=== PATIENT | female | born 1990 | race American Indian/Alaskan Native ===

== ENCOUNTER 2019-04-06 11:18 | Emergency (ER) | payer MEDICAID ==
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
[2019-04-06 12:08] LABS: Basophils # (Auto) 0.1 K/mm3 (0.0-0.1); Basophils % (Auto) 0.7 % (0.0-1.8); Eosinophils % (Auto) 0.4 % (0.0-4.3); Hematocrit 36.6 % (30.3-42.9); Hemoglobin 12.5 gm/dl (10.1-14.3); Lymphocytes # (Auto) 1.8 K/mm3 (1.2-5.4); Mean Corpuscular HGB Conc 34 % (30-34); Mean Corpuscular Volume 92 fl (79-97); Monocytes # (Auto) 0.7 K/mm3 (0.0-0.8); Monocytes % (Auto) 9.4 % (0.0-7.3); Platelet Count 237 K/mm3 (140-440); Red Blood Count 3.98 M/mm3 (3.65-5.03); Red Cell Distribution Width 14.8 % (13.2-15.2)
[2019-04-06 12:19] VITALS: BP 108/72
[2019-04-06 12:28] LABS: BUN/Creatinine Ratio 10; Blood Urea Nitrogen 7 mg/dL (7-17); Hemolysis Index 7
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
[2019-04-06 13:12] LABS: HCG Qualitative,Urine Positive (Negative)
[2019-04-06] MEDS ORDERED: BOOSTRIX IM ONE (13:13)
== END 2019-04-06 13:31 | disposition home or self-care (01) ==
LOC: ED 11:18
DX: O9A.211 Injury, poisoning and certain other consequences of external causes complicating pregnancy, first trimester (principal); S13.9XXA Sprain of joints and ligaments of unspecified parts of neck, initial encounter; O9A.311 Physical abuse complicating pregnancy, first trimester; Y04.2XXA Assault by strike against or bumped into by another person, initial encounter; Y93.89 Activity, other specified; Y92.89 Other specified places as the place of occurrence of the external cause; Y99.8 Other external cause status
CPT/HCPCS: 36415; 70450; 72125; 80048; 81025; 85025

== ENCOUNTER 2020-10-28 17:08 | Emergency (ER) | payer MEDICAID ==
--- NOTE | 2020-10-28 17:59 | Emergency Department Report ---
- General Chief Complaint: Upper Respiratory Infection Stated Complaint: COUGH/CONGESTION Time Seen by Provider: 10/28/20 17:58 Source: patient Mode of arrival: Ambulatory Limitations: No Limitations - History of Present Illness Initial Comments: Patient is a 29-year-old female who presents with complaints of cough and congestion. Patient states it started 5 days ago. Patient states that her symptoms are worsening. Patient states her symptoms became severe yesterday. Patient denies fever and chills. Patient denies sore throat. Patient states she is also having a runny nose. Patient denies nausea and vomiting. Patient denies diarrhea. Patient states she has not been tested for COVID-19. Patient denies chest pain and shortness of breath. Patient denies recent travel. Patient denies recent international travel. Patient denies exposure to the novel coronavirus. Patient denies sick contacts. Patient denies fever and chills. Patient denies loss of smell. Patient denies diarrhea. Patient denies coming in contact with anybody with symptoms of the novel coronavirus. MD Complaint: cough -: Sudden Severity: severe Consistency: constant Improves With: rest Worsens With: activity Associated Symptoms: denies other symptoms, rhinorrhea, nasal congestion, cough Treatments Prior to Arrival: Acetaminophen - Related Data Previous Rx's Medication Instructions Recorded Last Taken Type Hydrocodone Bit/Acetaminophen 1 each PO Q6H #20 tablet 04/17/13 Unknown Rx [Lortab 5-500 Tablet] Ibuprofen [Motrin] 600 mg PO Q8H PRN #60 tablet 04/17/13 Unknown Rx Benzonatate [Tessalon Perles] 100 mg PO Q8HR PRN #20 capsule 10/28/20 Unknown Rx Allergies Allergy/AdvReac Type Severity Reaction Status Date / Time No Known Allergies Allergy Verified 10/28/20 17:13 ED Review of Systems ROS: Stated complaint: COUGH/CONGESTION Other details as noted in HPI Constitutional: denies: chills, fever Eyes: denies: eye pain, eye discharge, vision change ENT: congestion. denies: ear pain, throat pain Respiratory: cough. denies: shortness of breath, wheezing Cardiovascular: denies: chest pain, palpitations Endocrine: no symptoms reported Gastrointestinal: denies: abdominal pain, nausea, diarrhea Genitourinary: denies: urgency, dysuria, discharge Musculoskeletal: denies: back pain, joint swelling, arthralgia Skin: denies: rash, lesions Neurological: denies: headache, weakness, paresthesias Psychiatric: denies: anxiety, depression Hematological/Lymphatic: denies: easy bleeding, easy bruising ED Past Medical Hx - Past Medical History Previous Medical History?: No - Surgical History Past Surgical History?: No - Family History Family history: no significant - Social History Smoking Status: Current Every Day Smoker Substance Use Type: None - Medications Home Medications: Home Medications Medication Instructions Recorded Confirmed Last Taken Type Hydrocodone Bit/Acetaminophen 1 each PO Q6H #20 tablet 04/17/13 Unknown Rx [Lortab 5-500 Tablet] Ibuprofen [Motrin] 600 mg PO Q8H PRN #60 tablet 04/17/13 Unknown Rx Benzonatate [Tessalon Perles] 100 mg PO Q8HR PRN #20 capsule 10/28/20 Unknown Rx ED Physical Exam - General Limitations: No Limitations General appearance: alert, in no apparent distress - Head Head exam: Present: atraumatic, normocephalic - Eye Eye exam: Present: normal appearance - ENT ENT exam: Present: normal orophraynx, mucous membranes moist, TM's normal bilaterally, normal external ear exam - Neck Neck exam: Present: normal inspection - Respiratory Respiratory exam: Present: normal lung sounds bilaterally. Absent: respiratory distress - Cardiovascular Cardiovascular Exam: Present: regular rate, normal rhythm. Absent: systolic murmur, diastolic murmur, rubs, gallop - GI/Abdominal GI/Abdominal exam: Present: soft, normal bowel sounds - Extremities Exam Extremities exam: Present: normal inspection - Back Exam Back exam: Present: normal inspection - Neurological Exam Neurological exam: Present: alert, oriented X3 - Psychiatric Psychiatric exam: Present: normal affect, normal mood - Skin Skin exam: Present: warm, dry, intact, normal color. Absent: rash ED Course Vital Signs 10/28/20 10/28/20 17:15 18:06 Temperature 97.9 F Pulse Rate 90 89 Respiratory 20 17 Rate Blood Pressure 146/93 Blood Pressure 133/89 [Right] O2 Sat by Pulse 100 99 Oximetry - Reevaluation(s) Reevaluation #1: I discussed all results and clinical findings with patient. I discussed plan of care with patient. Patient agrees with plan of care. Patient is stable for discharge. Patient will be discharged home. Patient given discharge instructions. Patient voiced understanding of discharge instructions. 10/28/20 18:21 ED Medical Decision Making - Radiology Data Radiology results: report reviewed, image reviewed interpreted by me: Chest x-ray: No pneumonia, no pneumothorax, no foreign body, no osseous findings, no acute findings CHEST 2 VIEWS INDICATION: cough. COMPARISON: None FINDINGS: SUPPORT DEVICES: None. HEART: Within normal limits. LUNGS/PLEURA: No acute air space or interstitial disease. No pneumothorax. ADDITIONAL FINDINGS: None. IMPRESSION: 1. No acute findings. - Medical Decision Making Patient is a 29-year-old female presents emergency room for cough and congestion for 5 days. Patient is taking ylbc-avt-icoydck acetaminophen. Patient symptoms are worsening is why she came to the emergency room. Patient had a chest x-ray which was negative for acute findings. Patient does not require any further emergency medical services. Patient's clinical findings are consistent with a upper respiratory infection. Patient symptoms are possibly secondary to COVID-19 and the patient was recommended to have outpatient COVID-19 testing. Patient will be given COVID-19 precautions. Patient given discharge instructions. Patient voiced understanding of discharge instructions. - Differential Diagnosis Upper respiratory infection, sinus infection, Covid, Critical care attestation.: If time is entered above; I have spent that time in minutes in the direct care of this critically ill patient, excluding procedure time. ED Disposition Clinical Impression: Person under investigation for COVID-19 Upper respiratory infection Qualifiers: URI type: unspecified viral URI Qualified Code(s): J06.9 - Acute upper respiratory infection, unspecified Disposition: DC-01 TO HOME OR SELFCARE Is pt being admited?: No Does the pt Need Aspirin: No Condition: Stable Instructions: COVID-19 Frequently Asked Questions, Viral Respiratory Infection, [id number], Upper Respiratory Infection, Adult, Kmdr-[id number]-[id number], COVID-19: How to Protect Yourself and Others - CDC, Cough, Adult, COVID-19 Additional Instructions: Patient to follow-up with primary care in 2 to 3 days. Patient to follow-up with outpatient COVID-19 testing and the health department in 2 to 3 days. Patient to rest. Patient to increase water. Patient to self quarantine for 10 to 14 days or until she has a negative PCR Covid test. Patient to take Tylenol or ibuprofen as needed for pain. Patient to take [id number] cold and flu medications. Patient to return to the ER if condition worsens, changes or new symptoms arise. Prescriptions: Benzonatate [Tessalon Perles] 100 mg PO Q8HR PRN #20 capsule PRN Reason: Cough Referrals: LORE HOWE MD [Staff Physician] - 2-3 Days Time of Disposition: 18:24
[2020-10-28 18:07] VITALS: BP 133/89
--- NOTE | 2020-10-28 18:08 | XRay Report ---
CHEST 2 VIEWS INDICATION: cough. COMPARISON: None FINDINGS: SUPPORT DEVICES: None. HEART: Within normal limits. LUNGS/PLEURA: No acute air space or interstitial disease. No pneumothorax. ADDITIONAL FINDINGS: None. IMPRESSION: 1. No acute findings. Signer Name: Sixto Alberto MD Signed: 10/28/2020 6:03 PM Workstation Name: [id number]
== END 2020-10-28 18:51 | disposition home or self-care (01) ==
LOC: ED 17:08
DX: J06.9 Acute upper respiratory infection, unspecified (principal); Z01.84 Encounter for antibody response examination; F17.200 Nicotine dependence, unspecified, uncomplicated; Z79.899 Other long term (current) drug therapy
CPT/HCPCS: 71046; 99283

== ENCOUNTER 2021-07-17 14:28 | Emergency (ER) | payer MEDICAID, OTHER ==
[2021-07-17] MEDS ORDERED: METOCLOPRAMIDE 10 MG TAB PO ONE (14:40)
[2021-07-17] MEDS ORDERED: diphenhydrAMINE 25 MG CAP PO ONE (14:40)
--- NOTE | 2021-07-17 14:40 | Emergency Department Report ---
ED General Adult HPI - General Chief complaint: Headache Stated complaint: HEADACHE Time Seen by Provider: 07/17/21 14:32 Source: patient Mode of arrival: Ambulatory Limitations: No Limitations - History of Present Illness Initial comments: 30-year-old female who denies any significant past medical history presents to the ER today with complaints of headache. Patient states headache started gradually about 2 hours ago while she was she was at work. She states that has been a constant headache. She took 200 mg ibuprofen without any relief. She states that about 45 minutes ago while at work she started having intermittent blurred vision to her right eye and "smelling blood". She denies any nosebleed, coughing up blood, or bleeding from anywhere. She denies any head injury. She is unable to describe any modifying factors. She denies any associated nausea or vomiting. She denies any associated URI symptoms or cough, fever chills or neck pain. She states that she does not typically suffer from headaches. She denies any speech changes, facial weakness, extremity paresthesias, focal extremity weakness or any additional symptoms. She is 2 days late for her Menstrual cycle. She states her last mc was the beginning of june. Complaint: headache -: Gradual, hour(s) (2) - Related Data Previous Rx's Medication Instructions Recorded Last Taken Type Benzonatate [Tessalon Perles] 100 mg PO Q8HR PRN #20 capsule 10/28/20 Unknown Rx Butalb/Acetamin/Caff 50-325-40 1 each PO Q4H PRN #12 tablet 07/17/21 Unknown Rx [Fioricet 50-325-40] Allergies Allergy/AdvReac Type Severity Reaction Status Date / Time No Known Allergies Allergy Verified 10/28/20 17:13 ED Review of Systems ROS: Stated complaint: HEADACHE Other details as noted in HPI Comment: All other systems reviewed and negative Constitutional: denies: chills, diaphoresis, fever, malaise, weakness Eyes: vision change ENT: denies: ear pain, throat pain, dental pain, hearing loss, epistaxis, congestion Respiratory: denies: cough, orthopnea, shortness of breath, SOB with exertion, SOB at rest, wheezing Cardiovascular: denies: chest pain, palpitations Gastrointestinal: denies: abdominal pain, nausea, diarrhea, constipation, hematemesis, melena, hematochezia Genitourinary: denies: urgency, dysuria, frequency, hematuria, discharge, abnormal menses, dyspareunia Musculoskeletal: denies: back pain, joint swelling, arthralgia Skin: denies: rash, lesions, change in color, change in hair/nails, pruritus Neurological: headache. denies: numbness, paresthesias, confusion, abnormal gait, vertigo Psychiatric: denies: anxiety, depression, auditory hallucinations, visual hallucinations, homicidal thoughts, suicidal thoughts Hematological/Lymphatic: denies: easy bleeding, easy bruising ED Past Medical Hx - Social History Smoking Status: Current Every Day Smoker Substance Use Type: None - Medications Home Medications: Home Medications Medication Instructions Recorded Confirmed Last Taken Type Benzonatate [Tessalon Perles] 100 mg PO Q8HR PRN #20 capsule 10/28/20 Unknown Rx Butalb/Acetamin/Caff 50-325-40 1 each PO Q4H PRN #12 tablet 07/17/21 Unknown Rx [Fioricet 50-325-40] ED Physical Exam - General Limitations: No Limitations General appearance: alert, in no apparent distress - Head Head exam: Present: atraumatic, normocephalic, normal inspection - Eye Eye exam: Present: normal appearance, PERRL, EOMI Pupils: Present: normal accommodation - ENT ENT exam: Present: normal exam, mucous membranes moist, TM's normal bilaterally - Neck Neck exam: Present: normal inspection, full ROM. Absent: meningismus - Respiratory Respiratory exam: Present: normal lung sounds bilaterally. Absent: respiratory distress, wheezes, rales, rhonchi - Cardiovascular Cardiovascular Exam: Present: regular rate, normal rhythm, normal heart sounds - GI/Abdominal GI/Abdominal exam: Present: soft. Absent: distended, guarding, rebound - Neurological Exam Neurological exam: Present: alert, oriented X3, CN II-XII intact, normal gait - Psychiatric Psychiatric exam: Present: normal affect, normal mood - Skin Skin exam: Present: intact ED Course Vital Signs 07/17/21 07/17/21 14:30 15:54 Temperature 98.0 F 98.1 F Pulse Rate 74 80 Respiratory 18 18 Rate Blood Pressure 152/95 Blood Pressure 126/85 [Right] O2 Sat by Pulse 100 100 Oximetry ED Medical Decision Making - Radiology Data Radiology results: report reviewed Patient Name: HERNANDEZ LORD Gender: Female Date of : 1990 Referring Provider: JANIYA RESENDEZ Organization: [facility] Accession Number: [id number] Requested Date: July 17, 2021 15:09 Report Status: Final Requested Procedure: 1 Procedure Description: CT head/brain wo con Modality: CT Findings Reporting MD: Elvin Warren Dictation Time: July 17, 2021 14:38 Hand Shaker: Not available Funds Transfer Clerk Date: . CT head/brain wo con INDICATION / CLINICAL INFORMATION: 30 years Female; headache/right blurry vision. TECHNIQUE: Routine CT head without contrast. All CT scans at this location are performed using CT dose reduction for ALARA by means of automated exposure control. COMPARISON: 04/06/2019 FINDINGS: BRAIN / INTRACRANIAL CONTENTS: No acute hemorrhage, mass effect, midline shift, hydrocephalus, or acute, large territorial infarct. No signs of significant atrophy or chronic infarct. No significant white matter abnormality seen. CRANIOCERVICAL JUNCTION: No significant abnormality. ORBITS: No significant abnormality of visualized orbits. SINUSES / MASTOIDS: Visualized paranasal sinuses and mastoid air cells are essentially clear. ADDITIONAL FINDINGS: None. IMPRESSION: 1. No focal mass, hemorrhage, hydrocephalus, or acute, large territorial infarct - Medical Decision Making The patient presented to the emergency department with a headache. The patient is now resting comfortably and feels better, is alert, talkative, interactive and in no distress. She has been observed sitting comfortably on the recliner, with headphones in her area listening to something on her phone. The patient appears well and i appears well-hydrated. The patient is neurologically intact, has a normal mental status, and is ambulatory in the ER. CT head negative for anything acute. Her history, exam, diagnostic testing and the patient's current condition does not suggest meningitis, stroke, sepsis, subarachnoid hemorrhage, intracranial bleeding, encephalitis, temporal arteritis or other significant pathology to warrant further testing, continued ED treatment, admission, neurological consultation or other specialist evaluation at this point. The vital signs have been stable. Discussed head CT results and urinalysis results with patient. Discussed suspected diagnosis with patient. Follow-up with neurologist especially if her symptoms become recurrent. She expressed understanding of all instructions and agree with plan the patient's condition is stable and appropriate for discharge. The patient will pursue further out patient evaluation with the primary care physician or other designated or consulting physician as indicated in the discharge instruction. Critical care attestation.: If time is entered above; I have spent that time in minutes in the direct care of this critically ill patient, excluding procedure time. ED Disposition Clinical Impression: Headache Disposition: 01 HOME / SELF CARE / HOMELESS Is pt being admited?: No Does the pt Need Aspirin: No Condition: Stable Instructions: Tension Headache, Adult, Xboj-xi-Xtec, Migraine Headache Additional Instructions: I recommend taking the fioricet as prescribed and as needed for headache. I recommend close follow up with PCP and neurologist listed on your discharge instructions especially if your symptoms continues for further evaluation. Return to ED if your symptoms worsens in any way. Prescriptions: Butalb/Acetamin/Caff 50-325-40 [Fioricet 50-325-40] 1 each PO Q4H PRN #12 tablet PRN Reason: Headache Referrals: ELVA JUNE MD [Staff Physician] - 3-5 Days [facility] [Provider Group] - 3-5 Days Forms: Work/School Release Form(ED) Time of Disposition: 15:48
[2021-07-17 15:09] LABS: HCG Qualitative,Urine Negative (Negative)
[2021-07-17 15:15] LABS: Bilirubin,Urine NEG (Negative); Blood,Urine NEG (Negative); Color,Urine Yellow (Yellow); Mucus,Urine FEW /HPF; Protein,Urine <15 mg/dL mg/dL (Negative); Urobilinogen,Urine < 2.0 mg/dL (<2.0)
--- NOTE | 2021-07-17 15:43 | Cat Scan Report ---
. CT head/brain wo con INDICATION / CLINICAL INFORMATION: 30 years Female; headache/right blurry vision. TECHNIQUE: Routine CT head without contrast. All CT scans at this location are performed using CT dos e reduction for ALARA by means of automated exposure control. COMPARISON: 04/06/2019 FINDINGS: BRAIN / INTRACRANIAL CONTENTS: No acute hemorrhage, mass effect, midline shift, hydrocephalus, or acu te, large territorial infarct. No signs of significant atrophy or chronic infarct. No significant whi te matter abnormality seen. CRANIOCERVICAL JUNCTION: No significant abnormality. ORBITS: No significant abnormality of visualized orbits. SINUSES / MASTOIDS: Visualized paranasal sinuses and mastoid air cells are essentially clear. ADDITIONAL FINDINGS: None. IMPRESSION: 1. No focal mass, hemorrhage, hydrocephalus, or acute, large territorial infarct. Signer Name: Elvin Warren MD, III Signed: 07/17/2021 3:38 PM Workstation Name: [id number]
[2021-07-17 15:54] VITALS: BP 126/85
== END 2021-07-17 15:54 | disposition home or self-care (01) ==
LOC: ED 14:28
DX: R51.9 Headache, unspecified (principal); F17.200 Nicotine dependence, unspecified, uncomplicated
CPT/HCPCS: 70450; 81001; 81025; 99284

== ENCOUNTER 2022-03-18 13:58 | Emergency (ER) | payer MEDICAID ==
[2022-03-18 15:03] VITALS: BP 137/87
== END 2022-03-18 15:13 | disposition left against medical advice (07) ==
LOC: ED 13:58
DX: R51.9 Headache, unspecified (principal); H53.8 Other visual disturbances; Z53.21 Procedure and treatment not carried out due to patient leaving prior to being seen by health care provider

== ENCOUNTER 2022-04-15 09:35 | Emergency (ER) | payer MEDICAID ==
[2022-04-15 12:45] LABS: Basophils # (Auto) 0.1 K/mm3 (0.0-0.1); Basophils % (Auto) 1.7 % (0.0-1.8); Eosinophils # (Auto) 0.3 K/mm3 (0.0-0.4); Eosinophils % (Auto) 4.9 % (0.0-4.3); Hematocrit 35.1 % (30.3-42.9); Hemoglobin 11.8 gm/dl (10.1-14.3); Lymphocytes % (Auto) 30.6 % (13.4-35.0); Mean Corpuscular HGB Conc 34 % (30-34); Mean Corpuscular Volume 93 fl (79-97); Monocytes # (Auto) 0.6 K/mm3 (0.0-0.8); Monocytes % (Auto) 9.5 % (0.0-7.3); Platelet Count 293 K/mm3 (140-440); Red Blood Count 3.77 M/mm3 (3.65-5.03); Red Cell Distribution Width 14.5 % (13.2-15.2)
[2022-04-15] MEDS ORDERED: SODIUM CHLORIDE 0.9% 500 ML 500 ML IV ONE (12:50)
--- NOTE | 2022-04-15 12:59 | Emergency Department Report ---
ED HPI - General Chief complaint: Weakness Stated complaint: 19 WKS /BACK PAIN/HEADACHE Time Seen by Provider: 04/15/22 12:38 Source: patient Mode of arrival: Ambulatory Limitations: No Limitations - History of Present Illness Initial comments: Patient is a 31-year-old female who is 19+ for weeks who presents with generalized fatigue headache and left-sided back pain radiating into her left lower quadrant. She is a 2 para 0-2-0-2 with premature delivery of twins back in 2009. She had preeclampsia during that as well. She did have a sore throat yesterday but denies any other respiratory symptoms, feve r or chills. Some urinary 40 Jesus but no dysuria or urgency. She has had some occasional nausea that she attributes to . No vomiting or diarrhea. Headache has been right periorbital and 2-3 out of 10. She has not eaten anything since last night except for some crackers and had some water with that at the time. MD Complaint: other (See initial comments) -: Gradual, Last night Location: flank Radiation: LLQ Severity: mild Severity scale (0 -10): 3 Quality: sharp Consistency: intermittent (None present at the time of my evaluation) Improves with: none Worsens with: none Associated symptoms: headache. denies: vaginal bleeding, vaginal discharge, rash Vaginal bleeding: none :: Yes Number of weeks : 19 (+4 days) OB History - Current : no complications OB History - Previous Pregnancies: preeclampsia, other (Premature delivery of twins in 2009) Pre-lorrie care: followed by OB, previous ultrasound confi - Related Data : 2 Para: 2 (Twins) Ab: 0 Previous Rx's Medication Instructions Recorded Last Taken Type Benzonatate [Tessalon Perles] 100 mg PO Q8HR PRN #20 capsule 10/28/20 Unknown Rx Butalb/Acetamin/Caff 50-325-40 1 each PO Q4H PRN #12 tablet 07/17/21 Unknown Rx [Fioricet 50-325-40] Allergies Allergy/AdvReac Type Severity Reaction Status Date / Time No Known Allergies Allergy Verified 03/18/22 15:04 ED Review of Systems ROS: Stated complaint: 19 WKS /BACK PAIN/HEADACHE Other details as noted in HPI Comment: Unobtainable due to pts medical conditions Constitutional: denies: chills, fever Eyes: denies: eye discharge, vision change ENT: throat pain Respiratory: denies: cough, shortness of breath, SOB with exertion, wheezing Cardiovascular: denies: chest pain, palpitations, edema Endocrine: denies: intolerance to cold, intolerance to heat, increased hunger, increased thirst, unexplained weight gain, unexplained weight loss Gastrointestinal: as per HPI, abdominal pain. denies: vomiting, diarrhea, constipation, hematemesis Genitourinary: denies: urgency, dysuria, hematuria, discharge Musculoskeletal: as per HPI, back pain Skin: denies: rash Neurological: headache. denies: weakness, numbness, paresthesias, confusion, vertigo Psychiatric: denies: anxiety, depression Hematological/Lymphatic: denies: easy bleeding, easy bruising ED Past Medical Hx - Past Medical History Previous Medical History?: No Additional medical history: Preeclampsia. Twin delivery 2009. - Surgical History Additional Surgical History: - Family History Family history: no significant - Social History Smoking Status: Current Every Day Smoker Substance Use Type: None - Medications Home Medications: Home Medications Medication Instructions Recorded Confirmed Last Taken Type Benzonatate [Tessalon Perles] 100 mg PO Q8HR PRN #20 capsule 10/28/20 Unknown Rx Butalb/Acetamin/Caff 50-325-40 1 each PO Q4H PRN #12 tablet 07/17/21 Unknown Rx [Fioricet 50-325-40] ED Physical Exam - General Limitations: No Limitations General appearance: alert, in no apparent distress - Head Head exam: Present: atraumatic, normocephalic - Eye Eye exam: Present: PERRL, EOMI. Absent: scleral icterus, conjunctival injection - ENT ENT exam: Present: mucous membranes dry - Neck Neck exam: Present: normal inspection, full ROM. Absent: tenderness, meningismus - Respiratory Respiratory exam: Present: normal lung sounds bilaterally. Absent: respiratory distress, wheezes, rales - Cardiovascular Cardiovascular Exam: Present: regular rate, normal rhythm, normal heart sounds - GI/Abdominal GI/Abdominal exam: Present: soft, normal bowel sounds. Absent: distended, tenderness, guarding, rebound - Extremities Exam Extremities exam: Present: normal inspection, full ROM - Back Exam Back exam: Present: normal inspection, full ROM. Absent: tenderness, CVA tenderness (R), CVA tenderness (L) - Neurological Exam Neurological exam: Present: alert, oriented X3, CN II-XII intact - Psychiatric Psychiatric exam: Present: normal affect, normal mood - Skin Skin exam: Present: warm, dry, intact, normal color ED Course Vital Signs 04/15/22 04/15/22 10:21 19:22 Temperature 97.9 F Pulse Rate 96 H 92 H Respiratory 18 12 Rate Blood Pressure 109/72 112/76 [Left] O2 Sat by Pulse 100 100 Oximetry - Reevaluation(s) Reevaluation #1: 04/15/22 18:58 Patient feels significantly improved once she ate. ED Medical Decision Making - Lab Data Result diagrams: 04/15/22 10:50 04/15/22 10:50 - Radiology Data Radiology results: report reviewed [address] [address] Ultrasound Report Signed Patient: HERNANDEZ LORD MR# : [id number] : 1990 Acct:[id number] Age/Sex: 31 / F ADM Date: 04/15/22 Loc: ED Attending Dr: Ordering Physician: POLLY ZAMAN Date of Service: 04/15/22 Procedure(s): US OB >= 14 weeks Fetus Accession Number(s): [id number] cc: POLLY ZAMAN OBSTETRIC ULTRASOUND INDICATION: 19+4;N/V COMPARISON: No prior relevant imaging studies are available for comparison. TECHNIQUE: Transabdominal imaging was performed. FINDINGS: Single viable intrauterine is identified. lie: Cephalic. Heart rate: 149 bpm. measurements are as follows: Biparietal diameter 4.4 cm, 19 weeks 2 days Head circumference 16.6 cm, 19 weeks 2 days Abdominal circumference 14.2 cm, 19 weeks 4 days Femur length 3.0 cm, 19 weeks 2 days Fetus is in the 37th percentile for weight. Amniotic fluid volume is subjectively within normal limits. Grade 0 marginal posterior placenta. CONCLUSION: Single viable intrauterine currently in cephalic position is in the 37th percentile for weight. Amniotic fluid volume is subjectively within normal limits. There is grade 0 marginal posterior placenta. Sonographic follow-up is recommended. Signer Name: Gordon Lloyd MD Signed: 04/15/2022 4:20 PM Workstation Name: [email or web address] Transcribed By: SHANE Dictated By: Gordon Lloyd MD Electronically Authenticated By: Gordon Lloyd MD Signed Date/Time: 04/15/22 1620 DD/ 1618 TD/TT: Print - Medical Decision Making Pelvic pain in at 19 weeks +4. Consider threatened AB. Ultrasound reveals only posterior placenta. Patient states her last ultrasound she had placenta previa so I did give her a copy of her ultrasound report to give to her OB. Discussed return if vaginal bleeding. Blood sugar was a little low and protein slightly low so I discussed making sure she does not skip meals. She verbalizes understanding of same. She was given food tray here prior to discharge. Strep screen was negative. Urinalysis revealed ketones otherwise unremarkable. - Differential Diagnosis Pelvic pain in . Threatened AB. Urinary tract infection. Sore t Critical care attestation.: If time is entered above; I have spent that time in minutes in the direct care of this critically ill patient, excluding procedure time. ED Disposition Clinical Impression: Threatened in early , Pelvic pain affecting in second trimester, antepartum Disposition: HOME / SELF CARE / HOMELESS Is pt being admited?: No Condition: Stable Instructions: Threatened Miscarriage, Activity Restriction During , Sore Throat Additional Instructions: Follow-up with your EVENT MANAGER Monday. Copy of labs given to patient. Push fluids and supplement meals with protein drinks if not able to eat full meals. Pelvic rest (no intercourse or tampons or other intravaginal items until follow-up). Return if any worsening symptoms. Referrals: PRIMARY CARE, [Primary Care Provider] - 3-5 Days Forms: Work/School Release Form(ED) Time of Disposition: 19:00
[2022-04-15 13:11] LABS: Alanine Aminotransferase 25 units/L (7-56); Albumin 3.7 g/dL (3.9-5); Blood Urea Nitrogen 8 mg/dL (7-17); Calcium 9.2 mg/dL (8.4-10.2); Hemolysis Index 4
[2022-04-15 13:19] LABS: BUN/Creatinine Ratio 16
[2022-04-15] MEDS ORDERED: NACL IV SCH (16:00)
[2022-04-15] MEDS ORDERED: D5W IV SCH (16:00)
--- NOTE | 2022-04-15 16:25 | Ultrasound Report ---
OBSTETRIC ULTRASOUND INDICATION: 19+4;N/V COMPARISON: No prior relevant imaging studies are available for comparison. TECHNIQUE: Transabdominal imaging was performed. FINDINGS: Single viable intrauterine is identified. lie: Cephalic. Heart rate: 149 bpm. measurements are as follows: Biparietal diameter 4.4 cm, 19 weeks 2 days Head circumference 16.6 cm, 19 weeks 2 days Abdominal circumference 14.2 cm, 19 weeks 4 days Femur length 3.0 cm, 19 weeks 2 days Fetus is in the 37th percentile for weight. Amniotic fluid volume is subjectively within normal limits. Grade 0 marginal posterior placenta. CONCLUSION: Single viable intrauterine currently in cephalic position is in the 37th percentile for rosalva ght. Amniotic fluid volume is subjectively within normal limits. There is grade 0 marginal posterior placenta. Sonographic follow-up is recommended. Signer Name: Gordon Lloyd MD Signed: 04/15/2022 4:20 PM Workstation Name: [id number]
[2022-04-15 18:15] LABS: Bacteria,Urine 1+ /HPF (Negative)
[2022-04-15 18:23] LABS: Color,Urine Straw (Yellow)
[2022-04-15 19:23] VITALS: BP 112/76
== END 2022-04-15 19:31 | disposition home or self-care (01) ==
LOC: ED 09:35
DX: O03.9 Complete or unspecified spontaneous abortion without complication (principal); R10.2 Pelvic and perineal pain; F17.200 Nicotine dependence, unspecified, uncomplicated; Z3A.19 19 weeks gestation of pregnancy
CPT/HCPCS: 36415; 76805; 80053; 81001; 84443; 84702; 85025; 87116; 87210; 87430; 87591; 96360; 96361; 99284; J7040; J7042; J3490